=== PATIENT | female | born 1980 | race Caucasian/White ===

== ENCOUNTER 2019-04-19 22:42 | Emergency (ER) | payer MEDICAID ==
[~2019-04-19] VITALS: Ht 152.4 cm; Wt 123.4 kg
[2019-04-19 23:06] VITALS: Ht 152.4 cm; Wt 123.4 kg
[2019-04-20 01:20] VITALS: BP 111/67
== END 2019-04-20 01:20 | disposition home or self-care (01) ==
LOC: ED 22:42
DX: L73.9 Follicular disorder, unspecified (principal); R51 Headache
CPT/HCPCS: J1885